=== PATIENT | female | born 1975 | race Caucasian/White ===

== ENCOUNTER 2020-10-08 07:52 | Inpatient (IN) | payer BC ==
--- NOTE | 2020-10-02 15:56 | PCM.SN.2 ---
#1 Interpretation EKG Date: 10/02/20 Time: 14:20 Rhythm: NSR Rate (Beats/Min): 63 [place]: Normal P-Wave: Present QRS: Normal ST-T: Normal QT: Normal
[~2020-10-08 07:52] MED LIST: Ketamine 500 mg/10 ML MDV ONE; Lidocaine 1% 4 ML ONE; Lidocaine 1%/Sod Bicarbonate in NS 8.4% 1 ML Syringe IDERM PRN; Midazolam 1 MG/ML 2 ML SDV ONE; Ondansetron 4 MG/2 ML SDV ONE; Propofol 200 MG/20 ML SDV ONE; Rocuronium 50 MG/5 ML Vial ONE; Sodium Chloride 0.9% 10 ML Syringe FLUSH PRN; fentaNYL 250 MCG/5 ML SDV ONE
[2020-10-08] MEDS ORDERED: Scopolamine 1.5 MG Transdermal Patch TRDERM SCH (08:00)
[2020-10-08] MEDS: Lactated Ringers 1,000 ML IV SCH ×4 (08:18→18:30)
[2020-10-08] MEDS ORDERED: Bupivacaine 0.5% 30 ML SDV ONE ×2 (08:20→08:23)
--- NOTE | 2020-10-08 08:23 | PCM.PREANE ---
Preanesthetic Assessment - Procedure Proposed Procedure: Total Abdominal hysterectomy - Anesthesia/Transfusion/Family Hx Anesthesia History: Prior Anesthesia Reaction (nausea) Family History of Anesthesia Reaction: No Transfusion History: Prior Transfusion Without Reaction - Review of Systems General: No Symptoms Pulmonary: No Symptoms Cardiovascular: No Symptoms Gastrointestinal: Nausea Neurological: No Symptoms Other: Reports: Thyroid Problems (hypothyroid) - Physical Assessment NPO Status Date: 10/07/20 NPO Status Time: 22:00 Height: 1.63 m ASA Class: 3 Mental Status: Alert & Oriented x3 Airway Class: Mallampati = 2 Dentition: Reports: Broken Tooth/Teeth (back right bottom) Thyro-Mental Finger Breadths: 3 Mouth Opening Finger Breadths: 3 ROM/Head Extension: Full Lungs: Clear to Auscultation, Normal Respiratory Effort Cardiovascular: Regular Rate, Regular Rhythm - Imaging/EKG Impressions: EKG SR rate 63 - Allergies Allergies/Adverse Reactions: Allergies Allergy/AdvReac Type Severity Reaction Status Date / Time latex AdvReac Rash Verified 10/07/20 09:16 - Blood Blood Available: Yes Product(s) Available: PRBC - Anesthesia Plan Pre-Op Medication Ordered: None - Acknowledgements Anesthesia Type Planned: General Anesthesia Pt an Appropriate Candidate for the Planned Anesthesia: Yes Alternatives and Risks of Anesthesia Discussed w Pt/Guardian: Yes Pt/Guardian Understands and Agrees with Anesthesia Plan: Yes PreAnesthesia Questionnaire HEENT History: Reports: None Cardiovascular History: Reports: None Respiratory History: Reports: None Gastrointestinal History: Reports: Cholelithiasis, Other (See Below) Other Gastrointestinal History: gastric duodenal ulcer; exploratory to abdomen Genitourinary History: Reports: Renal Calculus, UTI, Recurrent Other Genitourinary History: bladder infections PORTRAIT ARTIST History: Reports: Other (See Below) Other OB/BYN History: abnormal menses, cystine stones, heavy menses, menorrhagia, uterine fibroid, yeast vaginitis, elective Other Musculoskeletal History: R index finger repair Neurological History: Reports: None Psychiatric History: Reports: Anxiety, Other (See Below) Other Psychiatric History: fatigue Endocrine/Metabolic History: Reports: Diabetes, Type II, Hypothyroidism, Obesity/BMI 30+ Hematologic History: Reports: None Immunologic History: Reports: None Oncologic (Cancer) History: Reports: None Dermatologic History: Reports: None - Infectious Disease History Infectious Disease History: Reports: None - Past Surgical History Head Surgeries/Procedures: Reports: None HEENT Surgical History: Reports: None Other HEENT Surgeries/Procedures: teeth extractions Cardiovascular Surgical History: Reports: None Respiratory Surgical History: Reports: None GI Surgical History: Reports: Bariatric Procedure, EGD Female Surgical History: Reports: Section, Other (See Below) Other Female Surgeries/Procedures: kidney surgeries Endocrine Surgical History: Reports: None Neurological Surgical History: Reports: None Oncologic Surgical History: Reports: None Dermatological Surgical History: Reports: None - SUBSTANCE USE Tobacco Use Status *Q: Never Tobacco User Tobacco Use Within Last Twelve Months: No Second Hand Smoke Exposure: No Days Per Week of Alcohol Use: 0 Number of Drinks Per Day: 0 Total Drinks Per Week: 0 Recreational Drug Use History: No - HOME MEDS Home Medications: Home Meds Levothyroxine [Synthroid] 88 mcg PO DAILY 07/14/15 [History] Multivitamin [Multivitamins] 1 each PO BID 09/08/15 [History] Biotin 1 mg PO DAILY 10/07/20 [History] Calcium Carbonate [Calcium] 600 mg PO BID 10/07/20 [History] Cholecalciferol (Vitamin D3) [Vitamin D3] 2,000 unit PO DAILY 10/07/20 [History] Omeprazole 40 mg PO DAILY 10/07/20 [History] Potassium Chloride [K-Tab ER] 10 meq PO TID 10/07/20 [History] Tiopronin [Thiola EC] 300 mg PO TID 10/07/20 [History] Tiopronin [Thiola] 100 mg PO BID 10/07/20 [History] - CURRENT (IN HOUSE) MEDS Current Meds: Current Medications Lactated Ringer's (Ringers, Lactated) 1,000 mls @ 125 mls/hr IV ASDIRECTED SABI Stop: 10/08/20 23:00 Lidocaine/Sodium Bicarbonate (Lidocaine 1%/Sod Bicarbonate In Ns 8.4% 1 Ml Syringe) 0.25 ml IDERM ONETIME PRN PRN Reason: Prior to IV Start Stop: 10/08/20 18:00 Scopolamine (Scopolamine 1.5 Mg Transdermal Patch) 1.5 mg TRDERM ONETIME SABI Stop: 10/08/20 18:00 Sodium Chloride (Sodium Chloride 0.9% 10 Ml Syringe) 10 ml FLUSH ASDIRECTED PRN PRN Reason: Keep Vein Open Stop: 10/08/20 18:00 Discontinued Medications Fentanyl (Fentanyl 250 Mcg/5 Ml Sdv) Confirm Administered Dose 250 mcg .ROUTE .STK-MED ONE Stop: 10/08/20 07:20 Lidocaine HCl (Xylocaine-Mpf 1%) Confirm Administered Dose 4 mls @ as directed .ROUTE .STK-MED ONE Stop: 10/08/20 07:20 Ketamine HCl (Ketamine 500 Mg/10 Ml Mdv) Confirm Administered Dose 500 mg .ROUTE .STK-MED ONE Stop: 10/08/20 07:23 Midazolam HCl (Midazolam 1 Mg/Ml 2 Ml Sdv) Confirm Administered Dose 2 mg .ROUTE .STK-MED ONE Stop: 10/08/20 07:20 Ondansetron HCl (Ondansetron 4 Mg/2 Ml Sdv) Confirm Administered Dose 4 mg .ROUTE .STK-MED ONE Stop: 10/08/20 07:20 Propofol (Propofol 200 Mg/20 Ml Sdv) Confirm Administered Dose 200 mg .ROUTE .STK-MED ONE Stop: 10/08/20 07:20 Rocuronium [place] (Rocuronium 50 Mg/5 Ml Vial) Confirm Administered Dose 50 mg .ROUTE .STK-MED ONE Stop: 10/08/20 07:20
[2020-10-08] MEDS ORDERED: HYDROmorphone 0.5 MG/0.5 ML Syringe ONE ×2 (08:50→10:02)
[2020-10-08] MEDS ORDERED: ceFAZolin 1 GM Vial ONE (08:59)
[2020-10-08] MEDS ORDERED: diphenhydrAMINE 50 MG/ML SDV ONE (09:28)
[2020-10-08] MEDS ORDERED: Lactated Ringers 1,000 ML ONE ×2 (09:37→10:36)
[2020-10-08] MEDS ORDERED: Ondansetron 4 MG/2 ML SDV ONE (09:38)
[2020-10-08] MEDS ORDERED: Dexamethasone 4 MG/ML 5 ML MDV ONE (09:38)
[2020-10-08] MEDS ORDERED: Ketorolac 30 MG/ML SDV ONE (10:22)
[2020-10-08] MEDS ORDERED: Ondansetron 4 MG/2 ML SDV IVPUSH PRN ×2 (11:11)
[2020-10-08] MEDS ORDERED: HYDROmorphone 0.5 MG/0.5 ML Syringe IVPUSH PRN (11:11)
[2020-10-08] MEDS ORDERED: fentaNYL 100 MCG/2 ML SDV IVPUSH PRN (11:11)
--- NOTE | 2020-10-08 11:12 | PCM.POSTAN ---
POST ANESTHESIA ASSESSMENT - MENTAL STATUS Mental Status: Alert, Oriented - VITAL SIGNS Vital Signs: Last Vital Signs Temp 97.0 F 10/08/20 08:05 Pulse 64 10/08/20 08:05 Resp 18 10/08/20 08:05 BP 128/73 10/08/20 08:05 Pulse Ox 100 10/08/20 08:05 1104 126/76 51 19 98.5 100% - RESPIRATORY Respiratory Status: Respiratory Rate WNL, Airway Patent, O2 Saturation Stable, Supplemental Oxygen - CARDIOVASCULAR CV Status: Pulse Rate WNL, Blood Pressure Stable - GASTROINTESTINAL GI Status: No Symptoms - PAIN Pain Score: 3 (didn't give a score= says it hurts ) - POST OP HYDRATION Hydration Status: Adequate & Stable
--- NOTE | 2020-10-08 11:25 | PCM.OPNOTE ---
- General Post-Op/Procedure Note Date of Surgery/Procedure: 10/08/20 Operative Procedure(s): Total abdominal hysterectomy, lysis of adhesions, right salpingectomy Findings: Uterus was enlarged to approximately 9 weeks size, adhered severely to the anterior abdominal wall in its entirety left side greater than right. Fallopian tubes unremarkable bilaterally with the exception of left fallopian tube was adhered to the pelvic sidewall and to the ovary. The ovaries and fallopian tubes had paratubal cystic lesions bilaterally which appeared inflammatory in nature. Ovaries appeared to be benign in nature. Posterior cul-de-sac was unremarkable. Pre Op Diagnosis: 1. Abnormal uterine bleeding. 2. Uterine fibroids. 3. Left ovarian cyst Post-Op Diagnosis: 1. Abnormal uterine bleeding. 2. Uterine fibroids with enlargement. 3. Severe adhesions. 4. Nevus just adjacent to the lower left Pfannenstiel scar. Anesthesia Technique: General ET Tube Other Anesthesia Type: Marcaine 0.5% - 20 mLlocal Primary Surgeon: Omar Durant Secondary Surgeon: Jose Jorge Anesthesia Provider: Rakan Wilcox Reason Manager Winter Was Necessary: Retraction, assistance, patient safety, quality of care. Pathology: 1. Uterus with right fallopian tube, paratubal cysts in one specimen container 2. Skin scar with nevus occluded. Fluid Replacement, Intraop: 2,500 Output, Urine Amount: 200 EBL in mLs: 500 Drain/Tube Comments:: Indwelling bladder catheter Condition: Good Free Text/Narrative:: Surgery duration: 78 minutes Procedure: After adequate consent was obtained, the patient was taken to the operating room. She was given 2 g of Ancef IV for infection prophylaxis. She had sequential compression stockings placed for DVT prophylaxis. She is administered general endotracheal anesthesia. After adequate administration of anesthesia patient was placed in a frog-leg position and was prepped vaginally and abdom inally in the routine fashion. Zeng catheter was placed. Patient's abdomen was then opened through her old Pfannenstiel skin incision scar. Old scar was removed as it was minimally widened and a small nevus was present side which patient wanted to have removed. The incision was carried down through skin, subcutaneous and fascial layers. Severe and dense adhesions/scar tissue were apparent. Abdominal cavity was entered without problems. Uterus was noted upon entrance into the abdominal cavity to be adhered to its full length on the left side from the cervix up to the left cornual area. These are very dense adhesions. Posterior cul-de-sac was unremarkable. The ovaries looked normal but around the ovaries and fallopian tubes were multiple small simple cystic structures which appeared inflammatory in nature. The uterus was brought outside the abdominal cavity with the assistance of a double-tooth tenaculum. The adhesions were taken down using sharp and blunt dissection taking care to avoid injury to the bowel. Anterior cul-de-sac was noted to have bladder adherent to the front side of the uterus. The secondary to previous C-sections. Using a Enseal vessel closure device the right infundibulopelvic ligament and eventually the right fallopian tube mesosalpinx was taken down. Ovaries were conserved per patient desire. The ovarian ligament, round ligament, broad ligament were then taken down in a routine stepwise fashion using the Enseal system. Left fallopian tube was left in place as it was severely attached to the ovary and the pelvic sidewall. The ovary appeared normal as was the right ovary and they were left in place per patient desire. The cardinal ligaments and taken down on each side to the level of the to the cervix. The angles of the vagina were then crossclamped using Shaw clamps 2 these pedicles were cut and were suture ligated with Shaw stitch of #1 Vicryl. 2 short running sutures of #1 Vicryl used to run from the ankle to mid vaginal cuff. 2 areas of oozing were controlled with sutures. Pelvis was irrigated and evaluated. Hemostasis was confirmed at this time after the small venous bleeders were controlled.. The pelvis was irrigated with fluid aspirated. 2 laps having previously been placed to retract the bowel were removed prior to irrigation. The abdominal was then closed. The fascia was closed with a running suture of #1 PDS from angle to angle. The subcutaneous area was closed with #1 Vicryl suture with 4 interrupted sutures. Subcuticular closure was then undertaken using 3-0 Monocryl suture on the Elliott needle. The incision was further asked made with Prineo mesh. The patient was awakened from general endotracheal anesthesia and was discharged from the operating room in good condition.
[2020-10-08] MEDS: oxyCODONE 5 MG Tab PO PRN ×3 (11:53→20:48)
[2020-10-08] MEDS: HYDROmorphone 0.5 MG/0.5 ML Syringe IVPUSH PRN ×2 (11:54→16:20)
[2020-10-08] MEDS ORDERED: Ketorolac 15 MG/ML SDV IVPUSH PRN (16:30)
[2020-10-08] MEDS: Acetaminophen 325 MG Tab PO PRN (16:39)
[2020-10-08] MEDS: Docusate Sodium 100 MG Cap PO SCH (20:27)
[2020-10-09] MEDS: oxyCODONE 5 MG Tab PO PRN ×3 (00:53→11:09)
[2020-10-09] MEDS: Lactated Ringers 1,000 ML IV SCH (04:25)
[2020-10-09] MEDS ORDERED: Levothyroxine 88 MCG Tab PO SCH (06:00)
--- NOTE | 2020-10-09 06:08 | PCM.DCSUM1 ---
Discharge Summary - Hospital Course Free Text/Narrative:: Teodora old 4 para 1-0-1-1 white female who was admitted on 10/08/2020 after a total abdominal hysterectomy, lysis of adhesions and right salpingectomy done for abnormal uterine bleeding, uterine fibroids with uterine enlargement, severe adhesions. She also had a wide excision of her old Pfannenstiel scar including a nevus removed from just adjacent to that scar. Patient had significant amount of adhesions present with adhesions extending from cervix all the way up the left side of the uterus to the cornual area and adhering the uterus to the anterior abdominal wall. The right and left ovaries were not charted in adhesions. Both ovaries looked within normal limits. There were small cystic areas which appeared inflammatory in nature, possibly from previous abdominal infection. Postoperatively pain was controlled with Dilaudid and Toradol IV. She is now switched over to Tylenol, Toradol and oxycodone. Her pain is under reasonably good control. Vital signs been stable and urinary output has been adequate. She is ambulating well and has been up in the chair as early as the evening of surgery. She is interested in being discharged today. She feels she can manage her symptomatology and discomfort at home with oral pain medications. She has not had any significant nausea. She is eating well. Diagnosis: Stroke: No - Discharge Data Discharge Date: 10/09/20 Discharge Disposition: Home, Self-Care 01 Condition: Good - Referral to Home Health Primary Care Physician: Omar Durant MD - Patient Summary/Data Operative Procedure(s) Performed: Total abdominal hysterectomy, lysis of adhesions, right salpingectomy - Patient Instructions Diet: Regular Diet as Tolerated Activity: As Tolerated (No intercourse or tampons until seen back. No lifting greater than 15 pounds or driving a car x7 to 10 days.) Driving: Do Not Drive Wound/Incision Care: Keep Operative Site/Wound Site Clean and Dry Notify Provider of: Fever, Increased Pain, Swelling and Redness, Nausea and/or Vomiting - Discharge Plan Prescriptions/Med Rec: oxyCODONE 5 mg PO Q4H PRN #30 tablet PRN Reason: Pain (Moderate 4-6) Home Medications: Home Meds Multivitamin [Multivitamins] 1 each PO BID 09/08/15 [History] Biotin 1 mg PO DAILY 10/07/20 [History] Calcium Carbonate [Calcium] 600 mg PO BID 10/07/20 [History] Cholecalciferol (Vitamin D3) [Vitamin D3] 2,000 unit PO DAILY 10/07/20 [History] Omeprazole 40 mg PO DAILY 10/07/20 [History] Potassium Chloride [K-Tab ER] 10 meq PO TID 10/07/20 [History] Tiopronin [Thiola EC] 300 mg PO TID 10/07/20 [History] Tiopronin [Thiola] 100 mg PO BID 10/07/20 [History] Acetaminophen [Tylenol] 650 mg PO Q4H PRN tablet 10/09/20 [Rx] Levothyroxine [Synthroid] 88 mcg PO ACBREAKFAST tablet 10/09/20 [Rx] oxyCODONE 5 mg PO Q4H PRN #30 tablet 10/09/20 [Rx] Referrals: Omar Durant MD [Primary Care Provider] - (Return to [facility] weeks.) - Discharge Summary/Plan Comment DC Time >30 min.: No Discharge Summary/Plan Comment: Discharge instructions: 1. Discharge home 2. Diet, activity and follow-up discussed with patient. Recommend high-fiber diet. Stool softeners are okay. 3. Precautions given concern increased pain, bleeding, temperature, signs/symptoms of DVT/PE. 4. Medications per home medication was printed, discussed with and given to the patient. 5. Return to clinic-Dr. Durant[facility] in 2 weeks. Diagnosis: 1. Abnormal uterine bleeding 2. Uterine enlargement with fibroids 3. Severe adhesions Status post total abdominal hysterectomy with right salpingectomy, lysis of pelvic adhesions. Pathology pending Condition: Good - Patient Data Vitals - Most Recent: Last Vital Signs Temp 37.5 C 10/09/20 04:29 Pulse 53 L 10/09/20 04:29 Resp 15 10/09/20 04:29 BP 98/48 L 10/09/20 04:29 Pulse Ox 97 10/09/20 04:29 Weight - Most Recent: 96.2 kg I&O - Last 24 hours: Intake & Output 10/08/20 10/08/20 10/09/20 14:59 22:59 06:59 Intake Total 3650 Output Total 097 173 1477 Balance 0395 -290 -5740 Lab Results - Last 24 hrs: Laboratory Results - last 24 hr 10/08/20 10/08/20 10/08/20 Range/Units 08:00 08:00 08:18 WBC 5.55 (3.98-10.04) K/mm3 RBC 5.08 (3.98-5.22) M/mm3 Hgb 14.8 (11.2-15.7) gm/dl Hct 45.8 H (34.1-44.9) % MCV 90.2 (79.4-94.8) fl MCH 29.1 (25.6-32.2) pg MCHC 32.3 (32.2-35.5) g/dl RDW Std Deviation 51.4 H (36.4-46.3) fL Plt Count 227 (182-369) K/mm3 MPV 11.3 (9.4-12.3) fl Neut % (Auto) 60.8 (34.0-71.1) % Lymph % (Auto) 28.1 (19.3-51.7) % Nelson % (Auto) 8.5 (4.7-12.5) % Eos % (Auto) 2.2 (0.7-5.8) Baso % (Auto) 0.4 (0.1-1.2) % Neut # (Auto) 3.38 (1.56-6.13) K/mm3 Lymph # (Auto) 1.56 (1.18-3.74) K/mm3 Nelson # (Auto) 0.47 H (0.24-0.36) K/mm3 Eos # (Auto) 0.12 (0.04-0.36) K/mm3 Baso # (Auto) 0.02 (0.01-0.08) K/mm3 Sodium (136-145) mEq/L Potassium (3.5-5.1) mEq/L Chloride (98-107) mEq/L Carbon Dioxide (21-32) mEq/L Anion Gap (5-15) BUN (7-18) mg/dL Creatinine (0.55-1.02) mg/dL Est Cr Clr Drug Dosing Estimated GFR (MDRD) (>60) mL/min BUN/Creatinine Ratio (14-18) Glucose (74-106) mg/dL Calcium (8.5-10.1) mg/dL Total Bilirubin (0.2-1.0) mg/dL AST (15-37) U/L ALT (14-59) U/L Alkaline Phosphatase (46-116) U/L Total Protein (6.4-8.2) g/dl Albumin (3.4-5.0) g/dl Globulin gm/dL Albumin/Globulin Ratio (1-2) Urine Color Yellow (Yellow) Urine Appearance Clear (Clear) Urine pH 8.5 H (5.0-8.0) Ur Specific [place] 1.020 (1.005-1.030) Urine Protein Negative (Negative) Urine Glucose (UA) Negative (Negative) Urine Ketones Negative (Negative) Urine Occult Blood 2+ H (Negative) Urine Nitrite Negative (Negative) Urine Bilirubin Negative (Negative) Urine Urobilinogen 2.0 H (0.2-1.0) Ur Leukocyte Esterase Negative (Negative) Urine HCG, Qual Negative (NEGATIVE) Blood Type Gel Antibody Screen 10/08/20 10/08/20 Range/Units 08:18 08:18 WBC (3.98-10.04) K/mm3 RBC (3.98-5.22) M/mm3 Hgb (11.2-15.7) gm/dl Hct (34.1-44.9) % MCV (79.4-94.8) fl MCH (25.6-32.2) pg MCHC (32.2-35.5) g/dl RDW Std Deviation (36.4-46.3) fL Plt Count (182-369) K/mm3 MPV (9.4-12.3) fl Neut % (Auto) (34.0-71.1) % Lymph % (Auto) (19.3-51.7) % Nelson % (Auto) (4.7-12.5) % Eos % (Auto) (0.7-5.8) Baso % (Auto) (0.1-1.2) % Neut # (Auto) (1.56-6.13) K/mm3 Lymph # (Auto) (1.18-3.74) K/mm3 Nelson # (Auto) (0.24-0.36) K/mm3 Eos # (Auto) (0.04-0.36) K/mm3 Baso # (Auto) (0.01-0.08) K/mm3 Sodium 142 (136-145) mEq/L Potassium 3.8 (3.5-5.1) mEq/L Chloride 105 (98-107) mEq/L Carbon Dioxide 29 (21-32) mEq/L Anion Gap 11.8 (5-15) BUN 10 (7-18) mg/dL Creatinine 0.8 (0.55-1.02) mg/dL Est Cr Clr Drug Dosing TNP Estimated GFR (MDRD) > 60 (>60) mL/min BUN/Creatinine Ratio 12.5 L (14-18) Glucose 78 (74-106) mg/dL Calcium 8.2 L (8.5-10.1) mg/dL Total Bilirubin 0.6 (0.2-1.0) mg/dL AST 15 (15-37) U/L ALT 20 (14-59) U/L Alkaline Phosphatase 115 (46-116) U/L Total Protein 7.2 (6.4-8.2) g/dl Albumin 3.7 (3.4-5.0) g/dl Globulin 3.5 gm/dL Albumin/Globulin Ratio 1.1 (1-2) Urine Color (Yellow) Urine Appearance (Clear) Urine pH (5.0-8.0) Ur Specific [place] (1.005-1.030) Urine Protein (Negative) Urine Glucose (UA) (Negative) Urine Ketones (Negative) Urine Occult Blood (Negative) Urine Nitrite (Negative) Urine Bilirubin (Negative) Urine Urobilinogen (0.2-1.0) Ur Leukocyte Esterase (Negative) Urine HCG, Qual (NEGATIVE) Blood Type A POSITIVE Gel Antibody Screen Negative Med Orders - Current: Current Medications Acetaminophen (Acetaminophen 325 Mg Tab) 650 mg PO Q4H PRN PRN Reason: Pain (mild 1-3) Last Admin: 10/08/20 16:39 Dose: 650 mg Documented by: Docusate Sodium (Docusate Sodium 100 Mg Cap) 100 mg PO BID SABI Last Admin: 10/08/20 20:27 Dose: 100 mg Documented by: Fentanyl (Fentanyl 100 Mcg/2 Ml Sdv) 50 mcg IVPUSH Q5M PRN PRN Reason: Pain Hydromorphone HCl (Hydromorphone 0.5 Mg/0.5 Ml Syringe) 0.2 mg IVPUSH Q2H PRN PRN Reason: Pain (severe 7-10) Last Admin: 10/08/20 20:27 Dose: 0.2 mg Documented by: Lactated Ringer's (Ringers, Lactated) 1,000 mls @ 150 mls/hr IV ASDIRECTED [facility] Last Admin: 10/09/20 04:25 Dose: 125 mls/hr Documented by: Ketorolac Tromethamine (Ketorolac 15 Mg/Ml Sdv) 30 mg IVPUSH Q8H PRN PRN Reason: Pain (moderate 4-6) Stop: 10/13/20 16:31 Last Admin: 10/09/20 04:26 Dose: 30 mg Documented by: Levothyroxine Sodium (Levothyroxine 88 Mcg Tab) 88 mcg PO ACBREAKFAST [facility] Ondansetron HCl (Ondansetron 4 Mg/2 Ml Sdv) 4 mg IVPUSH ONETIME PRN PRN Reason: Nausea/Vomiting Ondansetron HCl (Ondansetron 4 Mg/2 Ml Sdv) 4 mg IVPUSH Q4H PRN PRN Reason: Nausea/Vomiting Oxycodone HCl (Oxycodone 5 Mg Tab) 5 mg PO Q4H PRN PRN Reason: Pain (moderate 4-6) Last Admin: 10/09/20 00:53 Dose: 5 mg Documented by: Discontinued Medications Bupivacaine HCl (Bupivacaine 0.5% 30 Ml Sdv) Confirm Administered Dose 30 ml .ROUTE .STK-MED ONE Stop: 10/08/20 08:21 Bupivacaine HCl (Bupivacaine 0.5% 30 Ml Sdv) Confirm Administered Dose 30 ml .ROUTE .STK-MED ONE Stop: 10/08/20 08:24 Last Admin: 10/08/20 09:35 Dose: 20 ml Documented by: Cefazolin Sodium (Cefazolin 1 Gm Vial) Confirm Administered Dose 2 gm .ROUTE .STK-MED ONE Stop: 10/08/20 09:00 Dexamethasone (Dexamethasone 4 Mg/Ml 5 Ml Mdv) Confirm Administered Dose 20 mg .ROUTE .STK-MED ONE Stop: 10/08/20 09:39 Diphenhydramine HCl (Diphenhydramine 50 Mg/Ml Sdv) Confirm Administered Dose 50 mg .ROUTE .STK-MED ONE Stop: 10/08/20 09:29 Fentanyl (Fentanyl 250 Mcg/5 Ml Sdv) Confirm Administered Dose 250 mcg .ROUTE .STK-MED ONE Stop: 10/08/20 07:20 Glycopyrrolate (Glycopyrrolate 0.2 Mg/Ml 2 Ml Syringe) Confirm Administered Dose 0.4 mg .ROUTE .STK-MED ONE Stop: 10/08/20 10:06 Hydromorphone HCl (Hydromorphone 0.5 Mg/0.5 Ml Syringe) Confirm Administered Dose 0.5 mg .ROUTE .STK-MED ONE Stop: 10/08/20 08:51 Hydromorphone HCl (Hydromorphone 0.5 Mg/0.5 Ml Syringe) Confirm Administered Dose 0.5 mg .ROUTE .STK-MED ONE Stop: 10/08/20 10:03 Hydromorphone HCl (Hydromorphone 0.5 Mg/0.5 Ml Syringe) 0.5 mg IVPUSH Q10M PRN PRN Reason: Pain (severe 7-10) Last Admin: 10/08/20 16:20 Dose: 0.5 mg Documented by: Lidocaine HCl (Xylocaine-Mpf 1%) Confirm Administered Dose 4 mls @ as directed .ROUTE .STK-MED ONE Stop: 10/08/20 07:20 Lactated Ringer's (Ringers, Lactated) Confirm Administered Dose 1,000 mls @ as directed .ROUTE .STK-MED ONE Stop: 10/08/20 09:38 Lactated Ringer's (Ringers, Lactated) Confirm Administered Dose 1,000 mls @ as directed .ROUTE .STK-MED ONE Stop: 10/08/20 10:37 Lactated Ringer's (Ringers, Lactated) 1,000 mls @ 125 mls/hr IV ASDIRECTED [facility] Stop: 10/08/20 19:00 Last Infusion: 10/08/20 17:53 Dose: 999 mls/hr Documented by: Ketamine HCl (Ketamine 500 Mg/10 Ml Mdv) Confirm Administered Dose 500 mg .ROUTE .STK-MED ONE Stop: 10/08/20 07:23 Ketorolac Tromethamine (Ketorolac 30 Mg/Ml Sdv) Confirm Administered Dose 30 mg .ROUTE .STK-MED ONE Stop: 10/08/20 10:23 Lidocaine/Sodium Bicarbonate (Lidocaine 1%/Sod Bicarbonate In Ns 8.4% 1 Ml Syringe) 0.25 ml IDERM ONETIME PRN PRN Reason: Prior to IV Start Stop: 10/08/20 18:00 Midazolam HCl (Midazolam 1 Mg/Ml 2 Ml Sdv) Confirm Administered Dose 2 mg .ROUTE .STK-MED ONE Stop: 10/08/20 07:20 Neostigmine Methylsulfate (Neostigmine Methylsulfate 5 Mg/5 Ml Syringe) Confirm Administered Dose 5 mg .ROUTE .STK-MED ONE Stop: 10/08/20 10:06 Ondansetron HCl (Ondansetron 4 Mg/2 Ml Sdv) Confirm Administered Dose 4 mg .ROUTE .STK-MED ONE Stop: 10/08/20 07:20 Ondansetron HCl (Ondansetron 4 Mg/2 Ml Sdv) Confirm Administered Dose 4 mg .ROUTE .STK-MED ONE Stop: 10/08/20 09:39 Propofol (Propofol 200 Mg/20 Ml Sdv) Confirm Administered Dose 200 mg .ROUTE .STK-MED ONE Stop: 10/08/20 07:20 Rocuronium [place] (Rocuronium 50 Mg/5 Ml Vial) Confirm Administered Dose 50 mg .ROUTE .STK-MED ONE Stop: 10/08/20 07:20 Scopolamine (Scopolamine 1.5 Mg Transdermal Patch) 1.5 mg TRDERM ONETIME SABI Stop: 10/08/20 18:00 Last Admin: 10/08/20 08:30 Dose: 1.5 mg Documented by: Sodium Chloride (Sodium Chloride 0.9% 10 Ml Syringe) 10 ml FLUSH ASDIRECTED PRN PRN Reason: Keep Vein Open Stop: 10/08/20 18:00 Vecuronium [place]ine (Vecuronium 10 Mg Vial) Confirm Administered Dose 10 mg .ROUTE .STK-MED ONE Stop: 10/08/20 08:47
--- NOTE | 2020-10-09 08:24 | PCM48HPAN ---
Post Anesthesia Note - EVALUATION WITHIN 48HRS OF ANESTHETIC Vital Signs in Normal Range: Yes Patient Participated in Evaluation: Yes Respiratory Function Stable: Yes Airway Patent: Yes Cardiovascular Function Stable: Yes Hydration Status Stable: Yes Pain Control Satisfactory: Yes Nausea and Vomiting Control Satisfactory: Yes Mental Status Recovered: Yes Vital Signs: Last Vital Signs Temp 37.5 C 10/09/20 04:29 Pulse 53 L 10/09/20 04:29 Resp 15 10/09/20 04:29 BP 98/48 L 10/09/20 04:29 Pulse Ox 97 10/09/20 04:29
[2020-10-09] MEDS: Acetaminophen 325 MG Tab PO PRN (11:10)
[2020-10-09 13:22] VITALS: BP 96/56; PULSE 79
[2020-10-09] MEDS: Docusate Sodium 100 MG Cap PO SCH (13:51)
== END 2020-10-09 13:00 | disposition home or self-care (01) | DRG 519 ==
LOC: JD.OB 07:52
PROVIDERS: ADMIT Obstetrics & Gynecology; ATTEND Obstetrics & Gynecology
PROC: 0UT90ZZ Resection of Uterus, Open Approach (ICD-10-PCS; principal; 2020-10-08)
PROC: 0UT50ZZ Resection of Right Fallopian Tube, Open Approach (ICD-10-PCS; 2020-10-08)
DX: D25.9 Leiomyoma of uterus, unspecified (principal); D62 Acute posthemorrhagic anemia; E03.9 Hypothyroidism, unspecified; E66.9 Obesity, unspecified; F41.9 Anxiety disorder, unspecified; N92.6 Irregular menstruation, unspecified; E61.1 Iron deficiency; N92.0 Excessive and frequent menstruation with regular cycle; Z87.442 Personal history of urinary calculi; Z87.440 Personal history of urinary (tract) infections; Z79.890 Hormone replacement therapy; Z79.899 Other long term (current) drug therapy; Z91.040 Latex allergy status; Z68.36 Body mass index [BMI] 36.0-36.9, adult
CPT/HCPCS: 00840; 36415; 80053; 81003; 81025; 85025; 86850; 86900; 86901; 88305; 94761; A9270-GY; J0690; J1100; J1170; J1200; J1885; J2250; J2405; J2704; J2710; J3010; J3490; J7120